=== PATIENT | male | born 1950 | race Caucasian/White ===

== ENCOUNTER → 2016-12-12 | Outpatient (CLI) | payer BC | END | disposition home or self-care (01) | LOC: RES 12-10 09:00 | DX: R06.09 Other forms of dyspnea (principal) | CPT/HCPCS: 94060; 94726; 94729 ==

== ENCOUNTER 2017-02-11 10:05 | Day surgery (SDC) | payer BC, OTHER ==
[~2017-02-11] VITALS: Ht 177.8 cm; Wt 85.0 kg
[~2017-02-11 10:05] MED LIST: ASPIRIN81 M2 PO; ATORVASTATIN CA20 MG PO; FISH OIL 1,2001 EAC4 PO; HYDROCHLOROTHIA25 MG PO; LEVOTHYROXINE175 MCG PO; MYRBETRIQ25 MG PO; PANTOPRAZOLE SO40 MG PO; TOPROL XL50 MG PO; VALSARTAN160 MG PO
== END 2017-02-11 18:00 | disposition home or self-care (01) ==
LOC: CATH 10:05
DX: I25.10 Atherosclerotic heart disease of native coronary artery without angina pectoris (principal); I10 Essential (primary) hypertension; E78.5 Hyperlipidemia, unspecified
CPT/HCPCS: 85347; C1769; C1887; J0153; J1200; J1644; J2250; J3010; J7050

== ENCOUNTER 2017-09-09 12:00 | Emergency (ER) | payer BC, OTHER ==
[~2017-09-09] VITALS: Ht 177.8 cm; Wt 81.2 kg
[~2017-09-09 12:00] MED LIST changes: +IRON240 MG PO; +SYNTHROID125 MCG PO
[2017-09-09 12:55] LABS: HEMATOCRIT 28.4 % (38.0-50.0); HEMOGLOBIN 10.2 G/DL (12.5-16.6); MCH 41.1 PG (29.0-34.0); MCHC 35.9 G/DL (30.0-36.0); MCV 114.5 FL (86-99); NRBC (%) 0.5 /100 WBC (0-0); PLATELET COUNT 158 K/uL (156-360); RBC DIS.WIDTH-SD 74.5 % (39-53); RED BLOOD COUNT 2.48 M/uL (4.00-5.50); WHITE BLOOD COUNT 4.2 K/uL (4.1-10.2)
[2017-09-09 13:03] LABS: CHLORIDE 105 mEq/L (99-109); POTASSIUM 4.5 mEq/L (3.7-5.4); SODIUM 142 mEq/L (136-147)
[2017-09-09 13:05] LABS: GLUCOSE 103 mg/dL (70-99)
[2017-09-09 13:09] LABS: CREATININE 0.9 mg/dL (0.6-1.3); GFR ESTIMATE (CALCULATED) > 59 mL/min/ (58.99-99999); UREA NITROGEN (BUN) 20 mg/dL (9-23)
[2017-09-09 13:13] LABS: TROP-I INTERPRETATION NEGATIVE; TROPONIN-I < 0.01 ng/mL (0.0-0.30)
[2017-09-09 13:18] VITALS: BP 193/90
== END 2017-09-09 13:53 | disposition home or self-care (01) ==
LOC: EME 12:00
DX: I10 Essential (primary) hypertension (principal); E53.8 Deficiency of other specified B group vitamins; K21.9 Gastro-esophageal reflux disease without esophagitis; Z87.891 Personal history of nicotine dependence; Z79.82 Long term (current) use of aspirin
CPT/HCPCS: 80048; 84484; 85027; 93005; 99281; 99284